=== PATIENT | male | born 1995 | race African-American/Black ===

== ENCOUNTER 2016-09-17 23:56 | Emergency (ER) | payer BC, OTHER ==
[~2016-09-17] VITALS: Ht 157.5 cm; Wt 54.4 kg
[2016-09-18 00:36] LABS: URINE BILIRUBIN NEGATIVE (Negative); URINE BLOOD 2+ (Negative); URINE COLOR YELLOW; URINE GLUCOSE-RANDOM* NEGATIVE (Negative); URINE KETONES NEGATIVE (Negative); URINE LEUKOCYTES-REFLEX NEGATIVE (Negative); URINE PROTEIN (DIPSTICK) NEGATIVE (Negative); URINE SPECIFIC GRAVITY <= 1.005 (1.003-1.035); URINE UROBILINOGEN 0.2 E.U./dl (0.2-1.0)
[2016-09-18 00:45] LABS: AMP/METHAMP Negative (Negative); BARBITURATES Negative (Negative); BENZODIAZEPINES Negative (Negative); COCAINE Negative (Negative); METHADONE Negative (Negative); OPIATES Negative (Negative); PCP Negative (Negative); THC Negative (Negative)
[2016-09-18 00:50] LABS: HEMATOCRIT 46.3 % (42.0-52.0); HEMOGLOBIN 15.7 gm/dL (14.0-18.0); MCH 31.5 pg (26.0-34.0); MCHC 33.9 g/dL (28.0-37.0); MCV 92.9 fL (80.0-100.0); RBC 4.98 mil/uL (4.50-6.00); RDW 13.2 % (10.5-14.5); WBC 7.4 thou/uL (4.0-11.0)
[2016-09-18 01:13] LABS: ACETAMINOPHEN < 2 ug/mL (10-30); ANION GAP 18 mmol/L (7-16); BUN 10 mg/dL (7-18); CALCIUM 8.9 mg/dL (8.5-10.1); CHLORIDE 101 mmol/L (98-107); CO2 22 mmol/L (21-32); CREATININE 0.9 mg/dL (0.7-1.3); GLUCOSE 101 mg/dL (74-106); POTASSIUM 3.4 mmol/L (3.5-5.1); SALICYLATE < 2.8 mg/dL (2.8-20.0); SODIUM 141 mmol/L (136-145)
[2016-09-18 01:14] LABS: CASTS None Seen /LPF (None Seen); CRYSTALS None Seen /LPF (None Seen); SQUAMOUS 0-3 Few /LPF (0-3); URINE RBC 0-2 Rare /HPF (0-2)
[2016-09-18 01:15] LABS: URINE WBC-REFLEX None Seen /HPF (0-5)
[2016-09-18] MEDS ORDERED: TESTOSTERO200 MG/1 M IM (02:40)
[2016-09-18 06:06] LABS: ALBUMIN 3.4 g/dL (3.4-5.0); DIRECT BILIRUBIN 0.1 mg/dL (<0.1-0.3); TOTAL BILIRUBIN 0.5 mg/dL (<0.1-1.0); TOTAL PROTEIN 6.9 g/dL (6.4-8.2)
[2016-09-18 09:58] VITALS: BP 121/67
[2016-09-19 18:06] LABS: TRICYCLIC (TCA) CONFIRMATION Negative ng/mL (Cutoff=100)
== END 2016-09-18 09:45 | disposition home or self-care (01) ==
LOC: ER 23:56
PROVIDERS: Emergency Medicine
DX: F10.129 Alcohol abuse with intoxication, unspecified (principal); R45.851 Suicidal ideations; F32.9 Major depressive disorder, single episode, unspecified; F17.210 Nicotine dependence, cigarettes, uncomplicated; F12.10 Cannabis abuse, uncomplicated; Y90.9 Presence of alcohol in blood, level not specified